=== PATIENT | female | born 2005 | race Two or more races ===

== ENCOUNTER 2024-08-24 14:06 | Observation (INO) | payer MEDICAID, SELFPAY ==
[2024-08-24] VITALS (51 sets, daily range): BP systolic 90–109; BP diastolic 51–64; PULSE 62–98; RESP 18–97; TEMP 36.8; O2SAT 89–100; BMI 37.7
--- NOTE | 2024-08-24 14:52 | XR_ITS ---
Examination: Complete OB ultrasound greater than 14 weeks Date and time of exam: August 24, 2024 1507 hours INDICATIONS: labor diagnosis, leaking amniotic fluid beginning 5 hours ago Findings: Viable intrauterine single fetus with single amniotic sac presentation transverse spine anterior Placenta posterior grade Cardiac motion 127 bpm Umbilical cord insertion seen Amniotic fluid adequate Cervix 3.2 cm closed Right ovary 2.3 cm arterial flow The ovary 3.0 cm arterial flow. Composite estimated gestational age based on BPD, head circumference, abdominal circumference, femur length is 25 weeks 4 days Estimated weight 811 g. Survey of intracranial anatomy, spinal anatomy, abdominal anatomy, four-chamber heart performed with no abnormalities identified. Impression: Viable intrauterine gestation transverse presentation head left upper quadrant.
--- NOTE | 2024-08-24 14:53 | XR_ITS ---
Examination: OB Transvaginal ultrasound of the pelvis, limited Technique: Transvaginal sonographic images pelvis performed using fernandez scale imaging Exam date and time: August 24, 2024 1531 hours INDICATIONS: Diagnosis labor, leaking amniotic fluid beginning 5 hours ago. Cervix 3.8 cm closed IMPRESSION: Cervix 3.8 cm closed
[2024-08-24 15:06] LABS: ROM Kit Lot # 578010271; ROM Swab Mixed By: JENKK; Rupture of Fetal Membranes Negative (Negative); Swb Mxed in Solvent 1 min? Yes
--- NOTE | 2024-08-24 15:59 | PD.LDANTE ---
Documentation for date of: 08/24/24 OB Labor/Induct. HPI History of Present Illness Chief complaint: Leaking fluid since 10:00 this morning : 2 Para: 1 Term pregnancies: 1 pregnancies: 0 Living children: 1 History of Abortions: Spontaneous and Elective: 0 History of Vaginal deliveries: 1 History of sections: No History of : No MICHELE: 11/23/24 Gestational Age (weeks): 26 Gestational Age (days): 0 History of present illness: This is a 19-year-old 2 para 1-0-0-1 with intrauterine at 26 weeks gestation by last period and first trimester ultrasound. She presented to the maternal unit at 1430 saying that she is continuing to have intermittent leaking. She denies any pain. She denies any contractions. She denies any vaginal bleeding. She reports normal movement. [facility] and was uncomplicated. She had a normal anatomic survey between 18 and 22 weeks and the cervical length at that time on July 25 measured 4.1 cm. History of Present Dating criteria: LMP confirmed by 1st trimester US Adequate Care: Yes Narrative: She has a previous full-term vacuum-assisted vaginal delivery without complications 12 months ago Review of Systems Review of Systems Narrative Review of Systems: She denies any chest pain palpitations cough fever shortness of breath or lower extremity pain. Past Medical History Surgical History SURGICAL: Negative Section Meds Home Medications and Allergies Home Medications ?Medication ?Instructions ?Recorded ?Confirmed ?Type vit no.95-ferrous 1 tab PO DAILY 07/12/23 07/27/23 History fumarate 28 mg-folic acid 800 mcg tablet () Allergies Allergy/AdvReac Type Severity Reaction Status Date / Time No Known Allergies Allergy Verified 07/12/23 16:46 OB Exam Physical Exam Vital signs: Temp Pulse Resp BP Pulse Ox 98.3 F 73 18 94/51 L 98 08/24/24 14:10 08/24/24 15:51 08/24/24 14:10 08/24/24 15:51 08/24/24 15:58 Routine HEENT Exam Comments: TOY pharynx and sclera clear Routine Respiratory Exam Comments: Clear to auscultation bilaterally Routine Cardiovascular Exam Comments: Regular rate and rhythm Routine Abdominal Exam Comments: Gravid, fundus consistent with 26 weeks gestation nontender Routine Exam Comments: Deferred Routine Extremities Exam Comments: Nontender Routine Skin Exam Comments: No gross rashes or lesions Routine Neurological Exam Comments: No focal deficit OB Results Impressions Impression: Intrauterine at 26 weeks gestation Rule out premature rupture of membranes AmniSure negative UA negative fibronectin not done due to TVS was done first OB ultrasound for cervical length and estimated weight and amniotic fluid evaluation: showed long and closed cervix 3.8 cm and adequate amniotic fluid. Discharge Home Follow up immediately if any further leaking. .
[2024-08-24 16:04] LABS: Collection Type, Urine Clean Catch
[2024-08-24 16:28] LABS: Bacteria,Urine Rare; Bilirubin,Urine Negative (Negative); Blood,Urine Negative (Negative); Clarity,Urine Clear (Clear/Hazy); Color,Urine Yellow (Lt Yel-Yel); Glucose, Urine Negative (Negative); Ketones,Urine Negative (Negative); Leukocyte Esterase,Urine Negative (Negative); Nitrite,Urine Negative (Negative); Protein,Urine Negative (Neg - Trace); RBC,Urine 3 /hpf (0-3); Specific Gravity,Urine 1.028 (1.001-1.035); Squamous Epithelial Cell,Urine 2 /hpf (0-5); Urobilinogen,Urine Negative mg/dL (0.0-1.0); WBC,Urine < 1 /hpf (0-5)
== END 2024-08-24 17:10 | disposition home or self-care (01) ==
PROVIDERS: Admitting Provider Specialist; Visit Provider Specialist
DX: Z34.82 Encounter for supervision of other normal pregnancy, second trimester (principal); Z3A.27 27 weeks gestation of pregnancy
CPT/HCPCS: 36415; 59899; 76805; 76817; 80307; 81001; 82731; 84112; 86850; 86900; 86901

== ENCOUNTER 2024-10-29 20:34 | Observation (INO) | payer MEDICAID, SELFPAY ==
[2024-10-29 20:41] VITALS: BP 99/58; PULSE 74
[2024-10-29 21:36] VITALS: BP 99/58; PULSE 74; RESP 18; RESP 99; TEMP 36.9; BMI 37.8
== END 2024-10-29 21:43 | disposition home or self-care (01) ==
PROVIDERS: Admitting Provider Obstetrics & Gynecology; Visit Provider Obstetrics & Gynecology
DX: O36.8130 Decreased fetal movements, third trimester, not applicable or unspecified (principal); Z3A.35 35 weeks gestation of pregnancy
CPT/HCPCS: 59025; 59899

== ENCOUNTER 2024-11-08 10:36 | Outpatient (CLI) | payer MEDICAID, SELFPAY ==
[2024-11-08] VITALS (10 sets, daily range): BP systolic 107; BP diastolic 62; PULSE 80–103; RESP 16–99; TEMP 36.6; O2SAT 97–99; BMI 37.4
== END 2024-11-08 11:19 | disposition home or self-care (01) ==
LOC: S4S1 10:36 → S4SX 10:37
PROVIDERS: Referring Provider Specialist; Visit Provider Specialist
DX: O36.8130 Decreased fetal movements, third trimester, not applicable or unspecified (principal); Z3A.36 36 weeks gestation of pregnancy
CPT/HCPCS: 59025

== ENCOUNTER 2024-11-29 14:08 | Inpatient (IN) | payer MEDICAID, SELFPAY ==
[2024-11-29] VITALS (85 sets, daily range): BP systolic 95–149; BP diastolic 52–88; PULSE 64–116; RESP 18–20; TEMP 36.8–36.9; O2SAT 89–100; BMI 36.7
--- NOTE | 2024-11-29 14:38 | PD.LDHP ---
Documentation for date of: 11/29/24 OB Labor/Induct. HPI History of Present Illness : 2 Term pregnancies: 1 pregnancies: 0 Living children: 1 History of Abortions: Spontaneous and Elective: 0 History of sections: No History of : No History of present illness: H and P dictated on STAT line in [facility] #9 : [id number] Past Medical History Surgical History SURGICAL: Negative Section Meds Home Medications and Allergies Home Medications ?Medication ?Instructions ?Recorded ?Confirmed ?Type vit no.95-ferrous 1 tab PO DAILY 07/12/23 07/27/23 History fumarate 28 mg-folic acid 800 mcg tablet () Allergies Allergy/AdvReac Type Severity Reaction Status Date / Time No Known Allergies Allergy Verified 07/12/23 16:46 OB Exam Physical Exam Vital signs: Pulse BP 74 115/60 11/29/24 14:20 11/29/24 14:20
[2024-11-29] MEDS: Ampicillin Inj 2,000 MG in SODIUM CHLORIDE 0.9% (POP) 100 ML 200 MG IV (14:56)
[2024-11-29 15:29] LABS: Basophils # (Auto) 0.0 Thou/mm3 (0.0-0.2); Basophils % (Auto) 0 % (0-2.5); Eosinophils # (Auto) 0.0 Thou/mm3 (0.0-0.5); Eosinophils % (Auto) 0 % (0-10); Hematocrit 36.1 % (36.0-46.0); Hemoglobin 12.0 g/dL (12.0-16.0); Immature Granulocytes Auto 0.02 Thou/mm3 (0.00-0.00); Lymphocytes # (Auto) 1.3 Thou/mm3 (1.0-4.8); Lymphocytes % (Auto) 13 % (10-50); Mean Corpuscular HGB Conc 33.2 g/dl (31.0-37.0); Mean Corpuscular Hemoglobin 29.8 pg (25.0-35.0); Mean Corpuscular Volume 90 fL (80-100); Monocytes # (Auto) 0.4 Thou/mm3 (0.0-0.8); Monocytes % (Auto) 4 % (0-12); Neutrophils # (Auto) 8.2 Thou/mm3 (1.8-7.7); Neutrophils % (Auto) 83 % (37-80); Nucleated Red Blood Cell # 0.00 Thou/mm3 (0.00-0.00); Nucleated Red Blood Cell % 0 /100 WBC (0); Platelet Count 166 Thou/mm3 (140-440); RDW Standard Deviation 46.5 fL (36.4-46.3); Red Blood Count 4.03 Miln/mm3 (4.00-5.20); White Blood Count 10.0 Thou/mm3 (3.6-11.0)
[2024-11-29 16:04] LABS: Syphilis Nonreactive (Nonreactive)
--- NOTE | 2024-11-29 16:58 | ESHP_ITS ---
RE: SHAYNA LUDWIG : 2005 DATE OF ADMISSION: 11/29/2024 HISTORY OF PRESENT ILLNESS: This is a 19-year-old 2, para 1 with due date of 11/30/2024 with intrauterine at 39 weeks and 6 days. She presents to labor and delivery complaining of contractions and is noted to be 5 cm dilated per RN. The patient's care was with [facility] and was complicated by gestational diabetes mellitus class A1. She has a Group B strep positive cervical rectal swab. She was treated for an upper respiratory infection during her on 07/12/2024. She was negative for COVID at that time. ALLERGIES: NO KNOWN DRUG ALLERGIES. MEDICATIONS: multivitamin 1 p.o. daily. PAST MEDICAL HISTORY: Gestational diabetes mellitus class A1, group B strep colonization, upper respiratory infection on 07/12/2024, Helicobacter pylori gastritis in 12/2022. OB HISTORY: In 07/29/2023, 40-week, vacuum-assisted vaginal delivery, 7 pounds 5 ounce male, no complications. PAST SURGICAL HISTORY: Denies. REVIEW OF SYSTEMS: She denies any chest pain, palpitations, cough, fever, shortness of breath, or lower extremity pain. She denies any headache, change in vision or right upper quadrant pain. FAMILY HISTORY: Father of the baby's sister has autism; however, Yumiko is not a carrier for Fragile X. PHYSICAL EXAMINATION: VITAL SIGNS: Blood pressure is 115/72, heart rate 87, respirations 18, temperature 98.6, and weight 203 pounds. HEENT: Oropharynx and sclerae are clear. LUNGS: Clear to auscultation bilaterally. HEART: Regular rate and rhythm. ABDOMEN: Gravid consistent with estimated weight 7.5 pounds. PELVIC: See RN notes. EXTREMITIES: Nontender. SKIN: No gross rashes or lesions. NEUROLOGIC: No focal deficit. ASSESSMENT: Intrauterine at 39 weeks and 6 days. Labor, anticipate spontaneous vaginal delivery. Group B strep, vaginal rectal colonization. PLAN: Ampicillin for group B strep prophylaxis. Informed consent was obtained. The patient was made aware of the risks, complications, alternatives, and benefits of operative vaginal delivery and delivery and agrees with these modes of delivery if indicated. DT: 14:37:23 TT: 16:55:00 Ref: [id number] - TID: [id number]
[2024-11-29] MEDS: OXYTOCIN in NS 20 units 20 UNIT/1,000 ML BAG 125 UNIT IV (17:07)
[2024-11-29] MEDS: IBUPROFEN TAB 400 MG TABLET 800 MG PO (17:23)
[2024-11-29] MEDS: BENZO/LANO/ALOE (Dermoplast) 60 GM CAN 1 SPRAY TOP (17:24)
--- NOTE | 2024-11-29 17:41 | PD.LDDS ---
DS: Providers Provider Date of admission: 11/29/24 14:58 Primary care physician: Physician No Primary/Family Admitting Provider: Nilo Hou MD Attending Provider on Admission: Nilo Hou MD Attending Provider on DC: Nilo Hou MD Discharging Provider: Nilo Hou MD DS: Diagnosis Problem List Completed Was Problem List Reviewed/Reconciled?: Yes Summary/Hosp Course Brief History: H and P dictated on STAT line in [facility] #9 : [id number] Peripartum Data Delivery Method: Normal Vaginal Delivery Episiotomy Description: None 1: Gender: Male Disposition of : home Time Spent with Patient Time attestation: Total time spent providing and/or coordinating discharge services: Exam Vital Signs Temp Pulse Resp BP Pulse Ox 98.4 F 76 20 114/56 L 100 11/29/24 14:10 11/29/24 17:35 11/29/24 14:10 11/29/24 17:35 11/29/24 17:37 Discharge Plan Plan Patient Disposition: HOME (Self Care) Patient condition on transfer: Stable Prescriptions/Referrals Prescriptions/Med Rec: No Action PNV no.95-ferrous fumarate-FA [] 28 mg iron- 800 mcg tablet 1 tab PO DAILY Patient Comments: TAKE 1 TABLET BY MOUTH EVERY DAY ibuprofen 600 mg tablet 600 mg PO Q6H PRN (Reason: pain) Qty: 30 0RF Referrals: No Primary/Family,Physician [Primary Care Provider] Patient/Caregiver Discharge Instructions Discharge Activity: activity as tolerated Print Language: Czech Stand Alone Forms: Tresa Award Info., Patient Portal Info Letter Planned Discharge Date 12/01/24
[2024-11-29 23:35] LABS: Basophils # (Auto) 0.0 Thou/mm3 (0.0-0.2); Basophils % (Auto) 0 % (0-2.5); Eosinophils # (Auto) 0.0 Thou/mm3 (0.0-0.5); Eosinophils % (Auto) 0 % (0-10); Hematocrit 32.2 % (36.0-46.0); Hemoglobin 10.7 g/dL (12.0-16.0); Immature Granulocytes Auto 0.03 Thou/mm3 (0.00-0.00); Lymphocytes # (Auto) 1.9 Thou/mm3 (1.0-4.8); Lymphocytes % (Auto) 18 % (10-50); Mean Corpuscular HGB Conc 33.2 g/dl (31.0-37.0); Mean Corpuscular Hemoglobin 30.1 pg (25.0-35.0); Mean Corpuscular Volume 91 fL (80-100); Monocytes # (Auto) 0.6 Thou/mm3 (0.0-0.8); Monocytes % (Auto) 6 % (0-12); Neutrophils # (Auto) 8.0 Thou/mm3 (1.8-7.7); Neutrophils % (Auto) 76 % (37-80); Nucleated Red Blood Cell # 0.00 Thou/mm3 (0.00-0.00); Nucleated Red Blood Cell % 0 /100 WBC (0); Platelet Count 150 Thou/mm3 (140-440); RDW Standard Deviation 46.2 fL (36.4-46.3); Red Blood Count 3.55 Miln/mm3 (4.00-5.20); White Blood Count 10.6 Thou/mm3 (3.6-11.0)
[2024-11-30 03:30] VITALS: BP 110/67; RESP 18; TEMP 37.5; O2SAT 98
[2024-11-30 07:10] VITALS: BP 126/83; PULSE 60; RESP 16; TEMP 36.6; O2SAT 100
[2024-11-30] MEDS: IBUPROFEN TAB 400 MG TABLET 800 MG PO ×2 (07:10→17:21)
--- NOTE | 2024-11-30 09:17 | PD.LDDELS ---
Data ([facility]) Data Hx Section: No : 2 Term: 1 : 0 Livin Abortions: Spontaneous & Theraputic: 0 Delivery Data ([facility]) Labor Data Initiation of labor: Spontaneous Induction/Augmentation Agent: None ROM date: 11/29/24 ROM time: 08:30 Amniotic membrane rupture type: Spontaneous Amniotic fluid description: Clear Delivery Data EDC: 11/30/24 EDC calculated by:: LMP/early US confirmation Onset of labor date: 11/29/24 Onset of labor time: 14:20 Complete dilation date: 11/29/24 Complete dilation time: 16:45 [place] delivery date: 11/29/24 [place] delivery time: 17:06 Gestational age (weeks): 39 Gestational age (days): 6 Placenta delivery date: 11/29/24 Placenta delivery time: 17:15 Stage 1 total time: Labor - Stage 1 Duration 2 hours and 25 minutes Delivered by: [place] Delivery nurse: Francisco J Bliss nurse: Xena Reading Recovery Teacher at delivery: No Support person(s) at delivery: FOB, Grandmother of baby Delivery Method Delivery method: Normal Vaginal Delivery Presentation: Vertex position: OA Anesthesia Type Anesthesia Type: Epidural Placenta Placenta delivery description: Spontaneous Cord blood sent to lab: Yes cord blood collection: Cord Blood Type Episiotomy Episiotomy description: None EBL Estimated blood loss (ml): 150 Umbilical Cord cord description: 3 Vessels Data ([facility]) [place] Data order: 1 [place]'s gender: Male Identification band number: [id number] weight (gms): 8 lb 1.103 oz Weight (pounds): 8 lbs and 1.1 ozs [place] length: 21 in 1 minute: 9 5 minutes: 9
[2024-11-30] MEDS: ACETAMINOPHEN 325 MG TABLET 650 MG PO (12:28)
[2024-11-30 12:30] VITALS: BP 106/65; PULSE 75; RESP 18; TEMP 36.7; O2SAT 98
[2024-11-30 15:05] VITALS: BP 119/75; PULSE 74; RESP 18; TEMP 36.7; O2SAT 98
== END 2024-11-30 17:48 | disposition home or self-care (01) | DRG 560 ==
LOC: S4SX 17:39 → S4NX 20:01
PROVIDERS: Admitting Provider Specialist; Visit Provider Specialist
DX: O24.420 Gestational diabetes mellitus in childbirth, diet controlled (principal); Z3A.39 39 weeks gestation of pregnancy; Z37.0 Single live birth
CPT/HCPCS: 36415; 59409; 85025; 86780; 86850; 86900; 86901; 94762; J0290; J2590; J2795; J3010; J3490; A9270

== ENCOUNTER → 2024-12-09 | Outpatient (CLI) | payer MEDICAID, SELFPAY ==
--- NOTE | 2024-12-09 16:29 | XR_ITS ---
Examination: AP pelvis single view Technique: AP portable supine pelvis single view Date and time: October 08, 2024, 1632 hrs. Indications: one week ago. 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
== END | disposition home or self-care (01) ==
LOC: CDIM 16:22
PROVIDERS: Referring Provider Specialist; Visit Provider Specialist
DX: O71.6 Obstetric damage to pelvic joints and ligaments (principal)
CPT/HCPCS: 72170